=== PATIENT | female | born 1985 | race Caucasian/White ===

== ENCOUNTER 2017-09-04 04:45 | Emergency (ER) | payer MEDICAID ==
[~2017-09-04 04:45] MED LIST: MMW SSP; PENVK500 PO
[2017-09-04 04:47] VITALS: BP 177/105; PULSE 84; RESP 16; TEMP 98.4; O2SAT 100
[2017-09-04] MEDS ORDERED: AMOXICILLIN/CLAVULANATE K 875 MG TAB PO ONE (05:00)
[2017-09-04] MEDS ORDERED: traMADol HCL 50 MG TAB PO ONE (05:00)
[2017-09-04] MEDS ORDERED: IBUP1TAB7 PO (05:06)
[2017-09-04] MEDS ORDERED: AUGM875T3 PO (05:06)
--- NOTE | 2017-09-04 05:08 | PD ---
HPI Chief Complaint: ENT Complaint Time Seen by Provider: 04:56 Travel History International Travel<30 days: No Contact w/Intl Traveler<30days: No Traveled to known affect area: No History of Present Illness HPI Patient is a 32-year-old female presenting to the emergency department for evaluation of right ear pain. Patient states her symptoms started Matt. Symptom onset was gradual getting progressively worse through the night prompting her visit to the emergency department. Patient reports a dull headache associated with the ear pain. Patient reports the pain is a 8/10 states it is throbbing aching. Patient took Tylenol with minimal relief of symptoms. Her last dose was just prior to arrival. Patient denies any significant past medical history. She denies any nausea, neck pain, chest pain , shortness of breath, abdominal pain, nausea, vomiting. PFSH Past Medical History Medical History: Denies Significant Hx ?: Not Past Surgical History Surgical History: No Previous Surgery Section: Yes Social History Alcohol Use: No Tobacco Use: No Substance Use: No Allergies-Medications (Allergen,Severity, Reaction): Coded Allergies: No Known Allergies (Unverified Adverse Reaction, Unknown, 09/04/17) Reported Meds & Prescriptions Reported Meds & Active Scripts Active No Active Prescriptions or Reported Medications Review of Systems Except as stated in HPI: all other systems reviewed are Neg HENT: Positive: Headaches, Earache Physical Exam Narrative GENERAL: Well-developed, well-nourished, alert female. Presenting in no acute distress although appears uncomfortable. SKIN: Warm and dry. HEAD: Normocephalic. EYES: No scleral icterus. No injection or drainage. EARS: left pinnae and left external canals appear within normal limits. Left tympanic membranes without erythema, dullness or perforation. Right external ear canal is edematous, erythematous, tympanic membrane is not completely visualized but appears erythematous.. NECK: Supple, trachea midline. No JVD or lymphadenopathy. CARDIOVASCULAR: Regular rate and rhythm without murmurs, gallops, or rubs. RESPIRATORY: Breath sounds equal bilaterally. No accessory muscle use. GASTROINTESTINAL: Abdomen soft, non-tender, nondistended. MUSCULOSKELETAL: No cyanosis, or edema. BACK: Nontender without obvious deformity. No CVA tenderness. Data Data Last Documented VS Vital Signs Date Time Temp Pulse Resp B/P (MAP) Pulse Ox O2 Delivery O2 Flow Rate FiO2 2/8/18 04:47 98.4 84 16 177/105 (129) 100 Orders Orders Tramadol (Ultram) (09/04/17 05:00) Amoxicil-Clavulanate (Augmentin) (09/04/17 05:00) MDM Medical Decision Making Medical Screen Exam Complete: Yes Emergency Medical Condition: Yes Interpretation(s) Vital Signs Date Time Temp Pulse Resp B/P (MAP) Pulse Ox O2 Delivery O2 Flow Rate FiO2 09/04/17 04:47 98.4 84 16 177/105 (129) 100 Differential Diagnosis Otitis media versus otitis externa versus effusion versus other Narrative Course Patient is 31-year-old female presenting for evaluation of right ear pain. Exam is consistent with otitis media, otitis externa. Patient will be given dose of antibiotics in the emergency department and medication for pain relief. He is encouraged to complete full course of antibiotics, follow-up with her primary doctor. She was encouraged to return to emergency department any worsening symptoms. Patient verbalized understanding of instructions. Patient stable for discharge. Diagnosis Primary Impression: Otitis media Qualified Codes: H65.91 - Unspecified nonsuppurative otitis media, right ear Referrals: [facility] Primary Care Phys[facility] Patient Instructions: General Instructions, Serous Otitis Media (ED) Additional Instructions: Follow-up with your primary doctor Complete full course of antibiotics as prescribed Return to emergency department for any new or worsening symptoms Med/Other Pt SpecificInfo: Prescription(s) given Scripts Ibuprofen (Ibuprofen) 800 Mg Tab 800 MG PO Q6HR Y for PAIN, #40 TAB 0 Refills Prov: Nicol Hopson 09/04/17 Amoxicillin-Clavulanate (Augmentin) 875-125 Mg Tab 1 TAB PO BID for Infection, #20 TAB 0 Refills Prov: Nicol Hopson 09/04/17 Disposition: 01 DISCHARGE HOME Condition: Stable Nicol Hopson Sep 04, 2017 05:08
== END 2017-09-04 05:36 | disposition home or self-care (01) ==
LOC: NEPD 04:45
DX: H65.91 Unspecified nonsuppurative otitis media, right ear (principal)
CPT/HCPCS: 99283

== ENCOUNTER 2017-09-06 13:42 | Emergency (ER) | payer MEDICAID ==
[~2017-09-06] VITALS: Ht 167.6 cm; Wt 71.0 kg
[~2017-09-06 13:42] MED LIST changes: +AUGM875T3 PO; +IBUP1TAB7 PO; -MMW SSP; -PENVK500 PO
[2017-09-06 13:44] VITALS: BP 155/114; PULSE 91; RESP 13; TEMP 98.5; O2SAT 100
[2017-09-06] MEDS ORDERED: SODIUM CHLOR 0.9% 1000 ML INJ 1,000 ML IV ONE (14:27)
[2017-09-06] MEDS ORDERED: SODIUM CHLORIDE 0.9% FLUSH 10 ML FLUSH IVF PRN (14:30)
[2017-09-06] MEDS ORDERED: METOCLOPRAMIDE HCL 10 MG/2 ML VIAL IVP ONE (14:30)
[2017-09-06] MEDS ORDERED: ACETAMINOPHEN 1000 MG/100 ML 100 ML IV ONE (14:30)
[2017-09-06] MEDS ORDERED: PROCHLORPERAZINE INJ 10 MG/2 ML VIAL IVP ONE (14:30)
--- NOTE | 2017-09-06 14:41 | PD ---
HPI Chief Complaint: Headache Time Seen by Provider: 14:16 Travel History International Travel<30 days: No Contact w/Intl Traveler<30days: No Traveled to known affect area: No History of Present Illness HPI 32y female presents to the emergency department for concern of a headache, neck pain, and bilateral ear pain since yesterday. Patient states that she was seen here at the hospital and diagnosed with otitis media and was discharged home with Augmentin. Patient states compliance with this medication. States she was also discharged with ibuprofen 800 mg and she has been using 3 800 mg tablets at a time and this is not been helping her pain. States her pain is located in her jaw, ears, head, and neck and describes the pain as constant, moderate with occasional sharp pain bilaterally that lasts several seconds and goes away. Says she started developing nausea and vomiting yesterday. Patient denies fevers or chills. Denies chest pain or shortness of breath. She is also developed nasal congestion. Currently, she denies nausea but was nauseous this morning. Says she took 2 Tylenol this morning for her pain. Denies any recent head trauma, MVC's or concussive events. Patient denies photophobia or visual changes. PFSH Past Medical History Tetanus Vaccination: Never Vaccinated ?: Unknown LMP: I DON'T KNOW Past Surgical History Section: Yes Social History Alcohol Use: No Tobacco Use: No Substance Use: No Allergies-Medications (Allergen,Severity, Reaction): Coded Allergies: No Known Allergies (Unverified Adverse Reaction, Unknown, 09/04/17) Reported Meds & Prescriptions Reported Meds & Active Scripts Active Hydrocodone-Acetaminophen 5-325 mg Tab 1-2 Tab PO Q4H PRN Ibuprofen 800 Mg Tab 800 Mg PO Q6HR PRN Augmentin (Amoxicillin-Clavulanate) 875-125 Mg Tab 1 Tab PO BID Review of Systems Except as stated in HPI: all other systems reviewed are Neg Physical Exam Narrative GENERAL: Well-developed well-nourished in mild distress SKIN: Focused skin assessment warm/dry. Patient is warm to the touch, no rashes HEAD: Atraumatic. Normocephalic. EYES: Pupils equal and round. No scleral icterus. No injection or drainage. No photophobia. EOMI. ENT: No nasal bleeding or discharge. Mucous membranes pink and moist. Tender to palpation of the temporomandibular joints, bilateral ears NECK: Trachea midline. No JVD. Diffusely tender, +/- meningismus CARDIOVASCULAR: Regular rate and rhythm. No murmur appreciated. RESPIRATORY: No accessory muscle use. Clear to auscultation. Breath sounds equal bilaterally. GASTROINTESTINAL: Abdomen soft, non-tender, nondistended. Hepatic and splenic margins not palpable. MUSCULOSKELETAL: No obvious deformities. No clubbing. No cyanosis. No edema. NEUROLOGICAL: Awake and alert. No obvious cranial nerve deficits. Motor grossly within normal limits. Normal speech. PSYCHIATRIC: Appropriate mood and affect; insight and judgment normal. Data Data Last Documented VS Vital Signs Date Time Temp Pulse Resp B/P (MAP) Pulse Ox O2 Delivery O2 Flow Rate FiO2 09/06/17 16:41 118/69 (85) 100 09/06/17 14:57 Room Air 09/06/17 13:44 98.5 91 13 Orders Orders Complete Blood Count With Diff (09/06/17 14:27) Comprehensive Metabolic Panel (09/06/17 14:27) Ecg Monitoring (09/06/17 14:27) Iv Access Insert/Monitor (09/06/17 14:27) Oximetry (09/06/17 14:27) Sodium Chloride 0.9% Flush (Ns Flush) (09/06/17 14:30) Prochlorperazine Inj (Compazine Inj) (09/06/17 14:30) Metoclopramide Inj (Reglan Inj) (09/06/17 14:30) Sodium Chlor 0.9% 1000 Ml Inj (Ns 1000 M (09/06/17 14:27) Acetaminophen 1000 Mg/100 Ml (Ofirmev 10 (09/06/17 14:30) Influenzae A/B Antigen (09/06/17 14:36) Ampicillin-Sulbactam Inj (Unasyn Inj) (09/06/17 14:45) Acetamin-Hydrocod 325-5 Mg (Cochrane 5-325 (09/06/17 14:45) Ed Discharge Order (09/06/17 16:26) Labs Laboratory Tests Test 09/06/17 14:55 White Blood Count 9.0 TH/MM3 Red Blood Count 4.29 MIL/MM3 Hemoglobin 12.7 GM/DL Hematocrit 36.7 % Mean Corpuscular Volume 85.6 FL Mean Corpuscular Hemoglobin 29.7 PG Mean Corpuscular Hemoglobin Concent 34.6 % Red Cell Distribution Width 14.8 % Platelet Count 149 TH/MM3 Mean Platelet Volume 9.6 FL Neutrophils (%) (Auto) 65.5 % Lymphocytes (%) (Auto) 22.9 % Monocytes (%) (Auto) 8.6 % Eosinophils (%) (Auto) 2.5 % Basophils (%) (Auto) 0.5 % Neutrophils # (Auto) 5.9 TH/MM3 Lymphocytes # (Auto) 2.1 TH/MM3 Monocytes # (Auto) 0.8 TH/MM3 Eosinophils # (Auto) 0.2 TH/MM3 Basophils # (Auto) 0.0 TH/MM3 CBC Comment DIFF FINAL Differential Comment Blood Urea Nitrogen 9 MG/DL Creatinine 0.68 MG/DL Random Glucose 105 MG/DL Total Protein 7.7 GM/DL Albumin 3.2 GM/DL Calcium Level 8.4 MG/DL Alkaline Phosphatase 116 U/L Aspartate Amino Transf (AST/SGOT) 25 U/L Alanine Aminotransferase (ALT/SGPT) 21 U/L Total Bilirubin 0.3 MG/DL Sodium Level 139 MEQ/L Potassium Level 3.8 MEQ/L Chloride Level 106 MEQ/L Carbon Dioxide Level 28.3 MEQ/L Anion Gap 5 MEQ/L Estimat Glomerular Filtration Rate 100 ML/MIN MDM Medical Decision Making Medical Screen Exam Complete: Yes Emergency Medical Condition: Yes Differential Diagnosis migraine, occipital neuralgia, trigeminal neuralgia, meningitis, influenza Narrative Course 32y female presents to the emergency department for concern of a headache, neck pain, and bilateral ear pain since yesterday. Patient states that she was seen here at the hospital and diagnosed with otitis media and was discharged home with Augmentin. Patient states compliance with this medication. States she was also discharged with ibuprofen 800 mg and she has been using 3 800 mg tablets at a time and this is not been helping her pain. States her pain is located in her jaw, ears, head, and neck and describes the pain as constant, moderate with occasional sharp pain bilaterally that lasts several seconds and goes away. Says she started developing nausea and vomiting yesterday. Patient denies fevers or chills. Denies chest pain or shortness of breath. She is also developed nasal congestion. Currently, she denies nausea but was nauseous this morning. Says she took 2 Tylenol this morning for her pain. Denies any recent head trauma, MVC's or concussive events. Patient denies photophobia or visual changes. Physical exam findings TTP to neck with tenderness with FROM, TTP to bilateral tragus and lobes, TTP to TMJ, POC test negative. Flu negative. Tylenol Iv ordered. 1000cc NS IVF administered. Please see Dr. Douglass's note for further information and dispo. Scripts Hydrocodone-Acetaminophen (Hydrocodone-Acetaminophen) 5-325 mg Tab 1-2 TAB PO Q4H Y for PAIN, #15 TAB 0 Refills Prov: Cesar Douglass MD 09/06/17 Condition: Stable Arleen Olsen Sep 06, 2017 14:41
[2017-09-06] MEDS ORDERED: AMPICILLIN-SULBACTAM INJ 3 GM in SODIUM CHLORIDE 0.9% INJ 100 ML IV ONE (14:45)
[2017-09-06] MEDS ORDERED: ACETAMINOPHEN/HYDROcodone 325 MG/5 MG TAB PO ONE (14:45)
[2017-09-06 14:57] VITALS: O2SAT 100
[2017-09-06 15:20] LABS: AUTOMATED NEUTROPHIL # 5.9 TH/MM3 (1.8-7.7); BASOPHIL % 0.5 % (0.0-2.0); EOSINOPHIL # 0.2 TH/MM3 (0-0.4); EOSINOPHIL % 2.5 % (0.0-4.0); HEMATOCRIT 36.7 % (35.0-46.0); HEMOGLOBIN 12.7 GM/DL (11.6-15.3); LYMPH % 22.9 % (9.0-44.0); LYMPHOCYTE # 2.1 TH/MM3 (1.0-4.8); MEAN CELL VOLUME 85.6 FL (80.0-100.0); MEAN CORPUSCULAR HEMOGLOBIN 29.7 PG (27.0-34.0); MEAN CORPUSCULAR HGB CONC 34.6 % (32.0-36.0); MEAN PLATELET VOLUME 9.6 FL (7.0-11.0); MONO % 8.6 % (0.0-8.0); MONOCYTE # 0.8 TH/MM3 (0-0.9); NEUT % 65.5 % (16.0-70.0); PLATELET COUNT 149 TH/MM3 (150-450); RED BLOOD COUNT 4.29 MIL/MM3 (4.00-5.30); RED CELL DISTRIBUTION WIDTH 14.8 % (11.6-17.2)
[2017-09-06 15:48] LABS: ALKALINE PHOSPHATASE 116 U/L (45-117); TOTAL BILIRUBIN ADULT 0.3 MG/DL (0.2-1.0); TOTAL PROTEIN 7.7 GM/DL (6.4-8.2)
[2017-09-06 15:50] LABS: ALBUMIN 3.2 GM/DL (3.4-5.0); ALT (GPT) 21 U/L (10-53); AST (GOT) 25 U/L (15-37); BICARBONATE 28.3 MEQ/L (21.0-32.0); BLOOD UREA NITROGEN 9 MG/DL (7-18); CALCIUM 8.4 MG/DL (8.5-10.1); CHLORIDE 106 MEQ/L (98-107); CREATININE 0.68 MG/DL (0.50-1.00); GLOMERULAR FILTRATION RATE 100 ML/MIN (>89); GLUCOSE,RANDOM 105 MG/DL (74-106); SODIUM (NA) 139 MEQ/L (136-145)
[2017-09-06] MEDS ORDERED: HYDR-3516 PO (16:25)
--- NOTE | 2017-09-06 16:26 | PD ---
Data Data Last Documented VS Vital Signs Date Time Temp Pulse Resp B/P (MAP) Pulse Ox O2 Delivery O2 Flow Rate FiO2 09/06/17 14:57 100 Room Air 09/06/17 13:44 98.5 91 13 Orders Orders Complete Blood Count With Diff (09/06/17 14:27) Comprehensive Metabolic Panel (09/06/17 14:27) Ecg Monitoring (09/06/17 14:27) Iv Access Insert/Monitor (09/06/17 14:27) Oximetry (09/06/17 14:27) Sodium Chloride 0.9% Flush (Ns Flush) (09/06/17 14:30) Prochlorperazine Inj (Compazine Inj) (09/06/17 14:30) Metoclopramide Inj (Reglan Inj) (09/06/17 14:30) Sodium Chlor 0.9% 1000 Ml Inj (Ns 1000 M (09/06/17 14:27) Acetaminophen 1000 Mg/100 Ml (Ofirmev 10 (09/06/17 14:30) Influenzae A/B Antigen (09/06/17 14:36) Ampicillin-Sulbactam Inj (Unasyn Inj) (09/06/17 14:45) Acetamin-Hydrocod 325-5 Mg ([place] 5-325 (09/06/17 14:45) Labs Laboratory Tests Test 09/06/17 14:55 White Blood Count 9.0 TH/MM3 Red Blood Count 4.29 MIL/MM3 Hemoglobin 12.7 GM/DL Hematocrit 36.7 % Mean Corpuscular Volume 85.6 FL Mean Corpuscular Hemoglobin 29.7 PG Mean Corpuscular Hemoglobin Concent 34.6 % Red Cell Distribution Width 14.8 % Platelet Count 149 TH/MM3 Mean Platelet Volume 9.6 FL Neutrophils (%) (Auto) 65.5 % Lymphocytes (%) (Auto) 22.9 % Monocytes (%) (Auto) 8.6 % Eosinophils (%) (Auto) 2.5 % Basophils (%) (Auto) 0.5 % Neutrophils # (Auto) 5.9 TH/MM3 Lymphocytes # (Auto) 2.1 TH/MM3 Monocytes # (Auto) 0.8 TH/MM3 Eosinophils # (Auto) 0.2 TH/MM3 Basophils # (Auto) 0.0 TH/MM3 CBC Comment DIFF FINAL Differential Comment Blood Urea Nitrogen 9 MG/DL Creatinine 0.68 MG/DL Random Glucose 105 MG/DL Total Protein 7.7 GM/DL Albumin 3.2 GM/DL Calcium Level 8.4 MG/DL Alkaline Phosphatase 116 U/L Aspartate Amino Transf (AST/SGOT) 25 U/L Alanine Aminotransferase (ALT/SGPT) 21 U/L Total Bilirubin 0.3 MG/DL Sodium Level 139 MEQ/L Potassium Level 3.8 MEQ/L Chloride Level 106 MEQ/L Carbon Dioxide Level 28.3 MEQ/L Anion Gap 5 MEQ/L Estimat Glomerular Filtration Rate 100 ML/MIN [facility] Supervised Visit with RONNY: Yes Narrative Course The history, exam, and medical decision-making in the associated mid-level provider note were completed with my assistance. I reviewed and agree with the findings presented. I attest that I had a [id number] encounter with the patient on the same day, and personally performed and documented my assessment and findings in the medical record. *My assessment and Findings: This 32-year-old woman presents to the ER with face pain and ear pain. She has completed a course of antibiotics but still having worsening persistent ear pain and facial pain as well as some headache. She does a lot of sinus tenderness to percussion and really a lot of tenderness with even gentle palpation of the tragus. That being said I do not see a lot of evidence of acute otitis externa. There is no evidence of zoster. Symptoms are now bilateral. I do not see any meningismus. I do not think she has any kind of subarachnoid hemorrhage or other devastating because of her headache. Would recommend a stronger pain medicine, NSAIDs, and switch her to Augmentin. Diagnosis Primary Impression: Otitis media with effusion Additional Impression: Sinusitis Additional Instruction: Take Naprosyn as prescribed. Use Lortab sparingly as needed for severe pain. Continue Augmentin. Return to the emergency department for any new or worsening symptoms. Med/Other Pt SpecificInfo: Prescription(s) given Scripts Hydrocodone-Acetaminophen (Hydrocodone-Acetaminophen) 5-325 mg Tab 1-2 TAB PO Q4H Y for PAIN, #15 TAB 0 Refills Prov: Cesar Douglass MD 09/06/17 Disposition: 01 DISCHARGE HOME Condition: Stable Cesar Douglass MD Sep 06, 2017 16:26
[2017-09-06 16:41] VITALS: BP 118/69
== END 2017-09-06 17:08 | disposition home or self-care (01) ==
LOC: NEPC 13:42
DX: H65.93 Unspecified nonsuppurative otitis media, bilateral (principal); J01.90 Acute sinusitis, unspecified; Z79.2 Long term (current) use of antibiotics
CPT/HCPCS: 80053; 85025; 87804; 96361; 96365; 96375; 99283; J0295; J0780; J7030